=== PATIENT | female | born 1990 | race Caucasian/White ===

== ENCOUNTER 2018-03-28 14:35 | Emergency (ER) | payer MEDICAID, OTHER ==
[~2018-03-28] VITALS: Ht 149.9 cm; Wt 92.4 kg
[2018-03-28 14:40] VITALS: BP 164/83
[2018-03-28] MEDS ORDERED: PENI500T2 PO (15:16)
== END 2018-03-28 15:27 | disposition home or self-care (01) ==
LOC: ER 14:35
DX: K08.89 Other specified disorders of teeth and supporting structures (principal); Z88.1 Allergy status to other antibiotic agents; Z79.899 Other long term (current) drug therapy
CPT/HCPCS: 99283

== ENCOUNTER 2020-05-03 10:03 | Emergency (ER) | payer OTHER ==
[~2020-05-03] VITALS: Ht 149.9 cm; Wt 91.5 kg
[2020-05-03 10:47] LABS: CLARITY,URINE SLIGHTLY CLOUDY (Clear); COLOR,URINE YELLOW (Yellow); GLUCOSE, URINE NEGATIVE (Neg); KETONES,URINE NEGATIVE (Neg); LEUKOCYTE ESTERASE ,URINE NEGATIVE (Neg); NITRITES, URINE NEGATIVE (Neg); OCCULT BLOOD,URINE NEGATIVE (Neg); PROTEIN,URINE NEGATIVE (Neg)
[2020-05-03 10:48] LABS: URINE HCG NEGATIVE (NEG)
[2020-05-03 10:51] LABS: UA COLLECTION TYPE CLN CATCH MIDSTREAM
[2020-05-03 10:52] LABS: BACTERIA,URINE NONE SEEN /HPF (Neg); MUCUS STRANDS MODERATE /LPF (Neg); RBC,URINE NONE SEEN /HPF (0-2); SQUAMOUS EPITHELIAL CELL,UR MANY /LPF (FEW); WBC,URINE 0-4 /HPF (0-4)
[2020-05-03 11:06] LABS: ALANINE AMINOTRANSFERASE 13 U/L (12-78); ALBUMIN 3.8 G/DL (3.4-5.0); ALKALINE PHOSPHATASE 69 IU/L (46-116); ANION GAP 6 (8-16); ASPARTATE AMINO TRANSFERASE 15 U/L (10-37); BASOPHILS % (AUTO) 0.5 % (0-1); BILIRUBIN,TOTAL 0.5 MG/DL (0.1-1.0); BLOOD UREA NITROGEN 11 MG/DL (7-18); BUN/CREATININE RATIO 10.5 (6.6-38.0); CALCIUM 8.9 MG/DL (8.5-10.1); CHLORIDE 105 MMOL/L (99-107); CREATININE 1.05 MG/DL (0.40-0.90); EOSINOPHILS # (AUTO) 0.2 X10'3 (0-0.9); EOSINOPHILS % (AUTO) 2.1 % (0-6); GLUCOSE 97 MG/DL (70-104); HEMOGLOBIN 14.1 g/dl (12.0-16.0); LIPASE 64 U/L (73-393); LYMPHOCYTES # (AUTO) 1.8 X10'3 (1.1-4.8); LYMPHOCYTES % (AUTO) 22.6 % (21-51); MEAN CORPUSCULAR HEMOGLOBIN 29.5 PG (27.0-31.0); MEAN CORPUSCULAR HGB CONC 33.6 g/dL (33.0-36.5); MONOCYTES # (AUTO) 0.4 X10'3 (0-0.9); MONOCYTES % (AUTO) 4.8 % (2-12); NEUTROPHILS # (AUTO) 5.7 X10'3 (1.8-7.7); PLATELET COUNT 281 X10'3 (140-440); POTASSIUM 4.1 MMOL/L (3.5-5.1); RED BLOOD COUNT 4.78 X10'6 (4.20-5.60); RED CELL DISTRIBUTION WIDTH 12.8 % (11.5-14.5); SODIUM 141 MMOL/L (135-145); TOTAL CARBON DIOXIDE 30.2 MMOL/L (24-32); TOTAL PROTEIN 7.7 G/DL (6.4-8.2); WHITE BLOOD COUNT 8.1 X10'3 (4.5-11.0); eGFR 62 ML/MIN
[2020-05-03] MEDS ORDERED: HYDROcodone/acetaminophen 10/325mg tab PO ONE (11:45)
[2020-05-03 11:55] VITALS: BP 119/81
== END 2020-05-03 11:57 | disposition home or self-care (01) ==
LOC: ER 10:03
DX: R10.11 Right upper quadrant pain (principal); Z88.1 Allergy status to other antibiotic agents
CPT/HCPCS: 36415; 76700; 80053; 81001; 81025; 83690; 85025; 99284

== ENCOUNTER 2020-06-14 10:04 | Emergency (ER) | payer SELFPAY ==
[~2020-06-14] VITALS: Ht 152.4 cm; Wt 94.1 kg
[2020-06-14 10:43] LABS: BASOPHILS # (AUTO) 0.1 X10'3 (0-0.2); BASOPHILS % (AUTO) 0.9 % (0-1); EOSINOPHILS # (AUTO) 0.1 X10'3 (0-0.9); EOSINOPHILS % (AUTO) 1.3 % (0-6); HEMATOCRIT 42.3 % (35.0-45.0); HEMOGLOBIN 14.2 g/dl (12.0-16.0); LYMPHOCYTES # (AUTO) 2.5 X10'3 (1.1-4.8); LYMPHOCYTES % (AUTO) 28.1 % (21-51); MEAN CORPUSCULAR HEMOGLOBIN 29.6 PG (27.0-31.0); MEAN CORPUSCULAR HGB CONC 33.5 g/dL (33.0-36.5); MEAN CORPUSCULAR VOLUME 88.2 FL (78-98); MEAN PLATELET VOLUME 9.4 FL (7.4-10.4); MONOCYTES # (AUTO) 0.5 X10'3 (0-0.9); MONOCYTES % (AUTO) 5.5 % (2-12); NEUTROPHILS # (AUTO) 5.8 X10'3 (1.8-7.7); NEUTROPHILS % (AUTO) 64.2 % (42-75); PLATELET COUNT 265 X10'3 (140-440); RED BLOOD COUNT 4.79 X10'6 (4.20-5.60)
[2020-06-14 10:43] LABS: CLARITY,URINE CLEAR (Clear); COLOR,URINE YELLOW (Yellow); GLUCOSE, URINE NEGATIVE (Neg); KETONES,URINE NEGATIVE (Neg); LEUKOCYTE ESTERASE ,URINE NEGATIVE (Neg); NITRITES, URINE NEGATIVE (Neg); OCCULT BLOOD,URINE NEGATIVE (Neg); PH,URINE 6.5 (4.8-8.0); PROTEIN,URINE NEGATIVE (Neg); URINE HCG NEGATIVE (NEG)
[2020-06-14 10:52] LABS: UA COLLECTION TYPE CLN CATCH MIDSTREAM
[2020-06-14 10:54] LABS: ALANINE AMINOTRANSFERASE 28 U/L (12-78); ALBUMIN 3.9 G/DL (3.4-5.0); ALKALINE PHOSPHATASE 72 IU/L (46-116); ANION GAP 8 (8-16); ASPARTATE AMINO TRANSFERASE 14 U/L (10-37); BILIRUBIN,TOTAL 0.5 MG/DL (0.1-1.0); BLOOD UREA NITROGEN 13 MG/DL (7-18); BUN/CREATININE RATIO 14.1 (6.6-38.0); CALCIUM 8.7 MG/DL (8.5-10.1); CHLORIDE 104 MMOL/L (99-107); CREATININE 0.92 MG/DL (0.40-0.90); GLUCOSE 84 MG/DL (70-104); LIPASE 95 U/L (73-393); POTASSIUM 3.9 MMOL/L (3.5-5.1); SODIUM 139 MMOL/L (135-145); TOTAL PROTEIN 7.7 G/DL (6.4-8.2); eGFR 72 ML/MIN
[2020-06-14] MEDS ORDERED: ondansetron/PF 4mg/2ml inj IV ONE (11:05)
[2020-06-14] MEDS ORDERED: normal saline 1000ML IV soln IVB ONE (11:05)
[2020-06-14] MEDS ORDERED: morphine 4 MG/ML inj SYRINge IV ONE (11:45)
[2020-06-14 13:10] VITALS: BP 108/54
== END 2020-06-14 13:12 | disposition home or self-care (01) ==
LOC: ER 10:04
DX: R10.31 Right lower quadrant pain (principal); K59.00 Constipation, unspecified; K76.0 Fatty (change of) liver, not elsewhere classified; Z88.1 Allergy status to other antibiotic agents
CPT/HCPCS: 36415; 74176; 80053; 81003; 81025; 83690; 85025; 96361; 96374; 96375; 99284; J2270; J2405; J7030

== ENCOUNTER 2022-03-22 21:41 | Emergency (ER) | payer MEDICAID ==
[~2022-03-22] VITALS: Ht 149.9 cm; Wt 90.9 kg
[2022-03-22 21:45] VITALS: BP 166/79
[2022-03-22] MEDS ORDERED: ketorolac trometh inj. 60 MG/2 ML VIAL IM ONE (23:40)
[2022-03-22] MEDS ORDERED: HYDROcodone/acetaminophen 5mg/325mg tablet PO ONE (23:40)
== END 2022-03-22 23:51 | disposition home or self-care (01) ==
LOC: ER 21:42
DX: S00.81XA Abrasion of other part of head, initial encounter (principal); R42 Dizziness and giddiness; Z79.2 Long term (current) use of antibiotics; Y08.89XA Assault by other specified means, initial encounter; Y93.89 Activity, other specified; Y92.89 Other specified places as the place of occurrence of the external cause; Y99.8 Other external cause status
CPT/HCPCS: 72050; 96372; 99283; J1885

== ENCOUNTER 2025-01-08 03:16 | Emergency (ER) | payer MEDICAID ==
[~2025-01-08] VITALS: Ht 149.9 cm; Wt 111.6 kg
[2025-01-08] MEDS ORDERED: CEPH-585 PO (04:46)
[2025-01-08] MEDS: cephalexin 250mg capsule PO ONE (04:58)
[2025-01-08] MEDS: TETanus/Pertussis (Acell)/Diphther VAC/PF (Tdap-Adult) 0.5ml syringe IMVAC ONE (04:59)
[2025-01-08 05:02] VITALS: BP 155/73; PULSE 82; RESP 16; TEMP 97.9; O2SAT 98
== END 2025-01-08 05:09 | disposition home or self-care (01) ==
LOC: ER 03:17
DX: H60.12 Cellulitis of left external ear (principal); Z88.1 Allergy status to other antibiotic agents
CPT/HCPCS: 90471; 90715; 99283

== ENCOUNTER 2025-02-04 09:45 | Emergency (ER) | payer MEDICAID ==
[~2025-02-04] VITALS: Ht 149.9 cm; Wt 110.0 kg
[2025-02-04 09:55] VITALS: BP 161/89; PULSE 94; RESP 18; TEMP 97.8; O2SAT 95
[2025-02-04] MEDS ORDERED: CLOT15CR73 TOP (10:25)
[2025-02-04] MEDS ORDERED: DOXY-462 PO (10:25)
== END 2025-02-04 10:31 | disposition home or self-care (01) ==
LOC: ER 09:45
DX: L08.9 Local infection of the skin and subcutaneous tissue, unspecified (principal); Z88.0 Allergy status to penicillin
CPT/HCPCS: 99283

== ENCOUNTER 2025-04-27 00:50 | Emergency (ER) | payer MEDICAID ==
[~2025-04-27] VITALS: Ht 149.9 cm; Wt 112.9 kg
[2025-04-27 01:02] VITALS: BP 148/84; PULSE 95; RESP 16; O2SAT 95
--- NOTE | 2025-04-27 02:45 | Physician Documentation ---
History of Present Illness ~ Chief Complaint: Rash Stated Complaint: RASH Time Seen by MD: 02:45 Primary Medical Doctor: [facility] HPI 34-year-old female, overall healthy, presenting with a rash to her right armpit She tells me that over the past couple of days she has noticed a red raised rash to her armpit. She did see her primary care doctor and was prescribed a steroid cream. She tells me that she used it 1 time and it did not seem to help. She also used 1 dose of an antifungal cream from a family member and this also did not fix the rash. She comes in tonight requesting antibiotics. Does report a history of impetigo, and was treated with antibiotics in the past. No fevers, chills, or other associated symptoms Medication Reconciliation Allergies: Coded Allergies: amoxicillin (Verified Allergy, Unknown, VOMITTING, 04/27/25) Scheduled Cephalexin*Monohydrate* (Keflex*), 1 CAP PO BID Past Medical History Past Medical History: No Pertinent History Past Surgical History: no surgical history Alcohol Use: None Drug Use: none Lives In: Home Review of Systems Constitutional: Denies: fever Integumentary: Reports: rash Physical Exam Vital Signs: Temperature: 97.8, Source: Temporal, Heart Rate: 95, Respiratory Rate: 16, BP: 148/84, Pulse Oximetry: 95, Weight: 112.900 Oxygen Flow Rate: 0 Physical Exam General: This is a overall healthy-appearing young female, sitting calmly in bed Heart: Regular rate and rhythm, normal-appearing peripheral perfusion Lungs: normal work of breathing, normal oxygen saturation on room air Right axilla: The patient has a rash in the right axillary region, which is beefy, raised and red, nonblanching, minimally tender. It measures approximately 6 x 8 cm. There are some satellite lesions around the hair follicles. Neuro: Alert and oriented, Psychiatric: Calm and cooperative with exam Progress Results/Orders Results/Orders Completed Orders - SAIRA HUMPHREY MD Cephalexin Capsule (Keflex Capsule) (04/27/25 02:55) Medications Received in ER Medications (Trade) Dose Ordered Sig/Bartolome Route PRN Reason Start Time Stop Time Status Last Admin Dose Admin (Keflex capsule) 500 mg ONCE ONCE PO 04/27/25 02:55 04/27/25 02:56 DC 04/27/25 03:04 500 MG Vital Signs 7/12/25 7/12/25 01:02 03:05 Temp 97.8 97.8 Pulse 95 Resp 16 B/P (MAP) 148/84 Pulse Ox 95 O2 Flow Rate 0 Medical Decision Making Differential Dx:Considerations: Include: Abscess, Contact dermatitis, Hidradenitis suppurativa, Impetigo, Urticaria Additional Comment Differential includes fungal infection or cellulitis Assessment The patient presents with a rash in her armpit. Per my exam, this seems most consistent with a fungal infection. Cellulitis/folliculitis also possible although less likely. No evidence of abscess or more dangerous deep space infection. After shared decision-making conversation we agreed on the following plan: She will be treated with a course of Keflex, she will also use a topical antifungal cream for 1-2 weeks. She will follow up with the primary care clinic for re-evaluation and further treatment. Departure Time of Disposition: 02:54 Disposition: 01 HOME / SELF CARE / HOMELESS Impression: Primary Impression: Rash Condition: Stable Discharge Instructions: Cellulitis, Adult Referrals: NO PRIMARY CARE PROVIDER (PCP) Prescriptions Cephalexin*Monohydrate* (Keflex*) 500 Mg Capsule 1 CAP PO BID for 7 Days, #14 CAP Prov: SAIRA HUMPHREY MD 04/27/25 Education Educated: Patient Educated regarding: diagnosis, treatment, need for follow up Signature Scribe Signature: na Attestation: SAIRA Leon MD Apr 27, 2025 02:45
[2025-04-27] MEDS ORDERED: CEPH-585 PO (02:56)
[2025-04-27 03:05] VITALS: TEMP 97.8
== END 2025-04-27 03:06 | disposition home or self-care (01) ==
LOC: ER 00:50
DX: R21 Rash and other nonspecific skin eruption (principal)
CPT/HCPCS: 99283

== ENCOUNTER 2025-05-19 20:17 | Emergency (ER) | payer MEDICAID ==
[~2025-05-19] VITALS: Ht 152.4 cm; Wt 118.5 kg
[2025-05-19 20:46] VITALS: TEMP 97.4
--- NOTE | 2025-05-20 02:48 | Physician Documentation ---
History of Present Illness ~ Chief Complaint: Cold, cough & congestion Stated Complaint: COLD SYMPTOMS Time Seen by MD: 02:46 OK to notify your PCP?: Yes Primary Medical Doctor: [facility] Source: patient, RN/MD, RN notes reviewed, old records Mode of Arrival: POV Exam Limitations: no limitations HPI This patient is a 34 y/o female who presents to ED with chief complaint of cough, cold, and congestion. Patient complains she has been having worsening congestion and cough for the past three days. Patient reports tonight she also developed a very bad ear-ache on the right side, which has been making it difficult for her to sleep. Patient notes she has been around a roommate who has been sick with similar symptoms. No fevers or chills. Patient denies any other associated symptoms at this time. Patient denies any other alleviating or exacerbating factors. Medication Reconciliation Allergies: Coded Allergies: No Known Allergies (Unverified , 05/19/25) Scheduled Azithromycin (Zithromax), 1 TAB PO DAILY Naproxen (Naproxen), 1 TAB PO Q12H Past Medical History Past Medical History: No Pertinent History Past Surgical History: no surgical history Smoking Status: Current every day smoker Alcohol Use: None Drug Use: none Lives In: Home Review of Systems All Other Systems at this time: Reviewed and Negative Physical Exam Vital Signs: RN Vital Signs have been reviewed: Yes, Temperature: 97.4, Source: Temporal, Heart Rate: 85, Respiratory Rate: 18, BP: 162/93, Pulse Oximetry: 96, Weight: 118.500 Oxygen Flow Rate: 0 Physical Exam General: The patient is well developed, well nourished, nontoxic appearing and is in no acute distress. Skin: [place], warm and dry with no rashes. HEENT: Nasal congestion. Head was normocephalic and atraumatic. Eyes - pupils equal, round, reactive to light and accommodation. Extraocular movements were intact. Conjunctivae were nonicteric. Ears - Right TM is bulging, loss of landmarks, erythematous. Left TM normal. The mouth and oropharynx were clear with moist mucous membranes. There were no pharyngeal exudates or erythema. Neck: Supple and nontender. There was no jugular venous distention, lymphadenopathy, thyromegaly or masses. Chest: Wheezing on auscultation, no rales or rhonchi. No accessory muscle use. No dullness to percussion. Heart: Rate regular and rhythmic. S1, S2. No murmurs. Palpation of the chest wall was normal. No rubs or thrills. Abdomen: Soft, nontender and nondistended. Positive bowel sounds. No guarding or rebound. No hepatosplenomegaly or palpable masses. Extremities: No cyanosis, clubbing or edema. The patient moves all extremit ies. Pulses were equal and symmetric. Neurologic: Cranial nerves II-XII were intact. Sensation was intact to light touch throughout. Motor strength was 5/5 in all four extremities. Deep tendon reflexes were intact in both upper and lower extremities. Psychologic: The patient was oriented to person, place and time. The patient demonstrated appropriate judgement and insight. Progress Results/Orders Reviewed/noted all lab results: Yes Results/Orders Completed Orders - HERIBERTO FRENCH MD Diphenhydramine Capsule (Benadryl Capsul (05/20/25 03:10) Azithromycin Tablet (Zithromax Tablet) (05/20/25 03:10) Naproxen Tablet (Naprosyn Tablet) (05/20/25 03:10) Medications Received in ER Medications (Trade) Dose Ordered Sig/Bartolome Route PRN Reason Start Time Stop Time Status Last Admin Dose Admin (Zithromax tablet) 500 mg ONCE ONCE PO 05/20/25 03:10 05/20/25 03:11 DC 05/20/25 03:19 500 MG (Naprosyn tablet) 500 mg ONCE ONCE PO 05/20/25 03:10 05/20/25 03:11 DC 05/20/25 03:19 500 MG Vital Signs 05/19/25 05/19/25 05/20/25 20:46 23:11 03:25 Temp 97.4 Pulse 85 72 Resp 18 18 16 B/P (MAP) 162/93 166/96 (119) Pulse Ox 96 98 O2 Flow Rate 0 0 Re-Evaluation Re-Evaluation : Re-Evaluation: Improved Progress Patient was seen and examined. Patient is given reassurance. Patient had a significant roaring red ranging right ear infection. Patient was given Zithromax naproxen also decongestants and was discharged home. Patient received Benadryl. Prescription was written for Zofran and naproxen. Patient was encouraged to follow up with her physician as needed for re-evaluation otherwise return to the ER if any worsening symptoms. Continuous pulse oximetry monitor interpretation shows normal oxygenation at 97% room air, normal, my interpretation. Medical Decision Making Additional info obtained from: old records Differential Dx:Considerations: Include: Allergic rhinitis, Influenza, Otitis media, Pharyngitis-Viral, Pneumonia, Sinusitis, URI, Other Departure Time of Disposition: 03:08 Disposition: 01 HOME / SELF CARE / HOMELESS Impression: Primary Impression: Otitis media Qualified Codes: H65.491 - Other chronic nonsuppurative otitis media, right ear Additional Impression: URI (upper respiratory infection) Qualified Codes: J06.9 - Acute upper respiratory infection, unspecified Condition: Stable Discharge Instructions: Otitis Media, Adult, Upper Respiratory Infection, Adult Additional Instructions: Take antibiotics as prescribed. In addition to Tylenol and Ibuprofen, you may also take a decongestion such as Benadryl. [id number] Claritin may also help her symptoms. Referrals: NO PRIMARY CARE PROVIDER (PCP) Prescriptions Azithromycin (Zithromax) 250 Mg Tablet 1 TAB PO DAILY, #4 TAB Prov: HERIBERTO FRENCH MD 05/20/25 Naproxen (Naproxen) 500 Mg Tablet 1 TAB PO Q12H, #20 TAB Prov: HERIBERTO FRENCH MD 05/20/25 Education Educated: Patient Educated regarding: diagnosis, treatment, need for follow up Signature Scribe Signature: Scribed for Heriberto French MD by Naheed Clements. 05/20/25 03:08 Attestation: The note accurately reflects work and decisions made by me.Heriberto French MD 05/20/25 02:48 HERIBERTO FRENCH MD May 20, 2025 02:48
[2025-05-20] MEDS ORDERED: NAPR-56 PO (03:19)
[2025-05-20] MEDS ORDERED: AZIT-164 PO (03:19)
[2025-05-20 03:25] VITALS: BP 166/96; PULSE 72; RESP 16; O2SAT 98
== END 2025-05-20 03:29 | disposition home or self-care (01) ==
LOC: ER 20:18
DX: J06.9 Acute upper respiratory infection, unspecified (principal); H66.91 Otitis media, unspecified, right ear; F17.200 Nicotine dependence, unspecified, uncomplicated
CPT/HCPCS: 99283

== ENCOUNTER 2025-05-22 22:26 | Emergency (ER) | payer MEDICAID ==
[~2025-05-22] VITALS: Ht 149.9 cm; Wt 112.0 kg
[~2025-05-22 22:26] MED LIST: AZIT-164 PO; NAPR-56 PO
[2025-05-22 22:31] VITALS: BP 183/87; PULSE 85; RESP 18; TEMP 97.4; O2SAT 98
[2025-05-22] MEDS ORDERED: AMOX-117 PO (23:18)
[2025-05-22] MEDS ORDERED: FLUT16SP2 BOTHNARES (23:18)
[2025-05-22] MEDS ORDERED: CIPR10DR RIGHT EAR (23:18)
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
== END 2025-05-22 23:26 | disposition home or self-care (01) ==
LOC: ER 22:26
DX: J06.9 Acute upper respiratory infection, unspecified (principal); H92.01 Otalgia, right ear
CPT/HCPCS: 99283

== ENCOUNTER 2025-06-23 11:22 | Emergency (ER) | payer MEDICAID ==
[~2025-06-23] VITALS: Ht 149.9 cm; Wt 108.3 kg
[~2025-06-23 11:22] MED LIST changes: -AZIT-164 PO; +FLUT16SP2 BOTHNARES; -NAPR-56 PO
[2025-06-23 11:40] VITALS: BP 179/95; PULSE 97; RESP 18; O2SAT 99
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
[2025-06-23 13:08] VITALS: TEMP 97.6
[2025-06-24] MEDS ORDERED: TRIA15CR61 TOP (21:22)
== END 2025-06-23 13:12 | disposition home or self-care (01) ==
LOC: ER 11:23
DX: R21 Rash and other nonspecific skin eruption (principal); Z79.899 Other long term (current) drug therapy; Y08.89XA Assault by other specified means, initial encounter; Y93.89 Activity, other specified; Y92.89 Other specified places as the place of occurrence of the external cause; Y99.8 Other external cause status
CPT/HCPCS: 99282

== ENCOUNTER 2025-06-24 19:00 | Emergency (ER) | payer MEDICAID ==
[~2025-06-24] VITALS: Ht 149.9 cm; Wt 108.3 kg
[2025-06-24] MEDS ORDERED: TRIA15CR61 TOP (21:22)
--- NOTE | 2025-06-24 21:23 | Physician Documentation ---
History of Present Illness ~ Chief Complaint: Rash Stated Complaint: FACE RASH Time Seen by MD: 20:32 Primary Medical Doctor: [facility] Patient is seen today with complaints of a rash on her face. She states she was prescribed some mupirocin ointment for presumed bacterial infection superficial skin infection but she states that ointment possibly made her skin itch worse. She has no other concern or complaint at this time. Medication Reconciliation Allergies: Coded Allergies: No Known Allergies (Unverified , 05/22/25) Scheduled Fluticasone Propionate (Flonase), 2 SPRAYS BOTHNARES DAILY Discontinued Medications Naproxen (Naproxen), 1 TAB PO Q12H Discontinued Reason: Auto Discontinued Past Medical History Past Medical History: No Pertinent History Past Surgical History: no surgical history Alcohol Use: None Drug Use: none Lives In: Home Review of Systems Constitutional: Denies: chills, fever, weakness Eyes: Denies: pain, blurred vision ENT: Denies: ear pain, nose pain, throat pain, mouth pain Respiratory: Denies: cough, shortness of breath Cardiovascular: Denies: chest pain, palpitations Gastrointestinal: Denies: abdominal pain, nausea, vomiting Genitourinary: Denies: burning, dysuria Female Genitalia: Denies: vaginal discharge, pelvic pain Neurological: Denies: headache, dizziness Musculoskeletal: Denies: pain, swelling Integumentary: Denies: rash, lesions Allergic/Immunologic: Denies: hives, itching Hematologic/Lymphatic: Denies: no symptoms reported Psychiatric: Denies: depression, anxiety Physical Exam Vital Signs: Temperature: 97.5, Heart Rate: 85, Respiratory Rate: 16, BP: 186/69, Pulse Oximetry: 98, Weight: 108.300 Oxygen Flow Rate: 0 Physical Exam General: Awake and Alert, no acute distress. HEENT: Conjunctiva pink, Sclera clear, Mucus Membranes moist. Neck: Supple without masses and tenderness. Resp: Unlabored. Lungs clear to auscultation bilaterally. Heart: Regular Rate and rhythm, normal S1 and S2 without murmur, rub or gallop. Abdomen: Soft and non tender no organomegaly Extremities: No cyanosis,clubbing or edema. Skin: Patient on exam has very mild eczematous rash on her chin and right upper eyelid. I do not appreciate any sign of impetigo or bacterial skin infection. Progress Results/Orders Results/Orders Vital Signs 06/24/25 19:05 Temp 97.5 Pulse 85 Resp 16 B/P (MAP) 186/69 Pulse Ox 98 O2 Flow Rate 0 Medical Decision Making Findings Patient is seen today with complaints of a rash on her face. She states she was prescribed some mupirocin ointment for presumed bacterial infection superficial skin infection but she states that ointment possibly made her skin itch worse. She has no other concern or complaint at this time. Patient was given prescription for triamcinolone topical cream to be applied twice a day to the affected areas for seven days. Patient will follow up with primary care for further eval and treatment and possible referral to Dermatology if needed. Return to ED with any worsening, concerning or changing symptoms. Departure Disposition: HOME / SELF CARE / HOMELESS Impression: Primary Impression: Skin irritation Additional Impression: Eczema Qualified Codes: L30.9 - Dermatitis, unspecified Condition: Stable Discharge Instructions: Eczema Additional Instructions: Patient was given prescription for triamcinolone topical cream to be applied twice a day to the affected areas for seven days. Patient will follow up with primary care for further eval and treatment and possible referral to Dermatology if needed. Return to ED with any worsening, concerning or changing symptoms. Referrals: NO PRIMARY CARE PROVIDER (PCP) Prescriptions Triamcinolone Acetonide 0.5% Crm* (Kenalog 0.5% Crm*) 15 Gm Tube 1 APPLIC TOP Q12H for 7 Days, #15 GM apply to affected area(s) Prov: LOLIS TREVINO PAC 06/24/25 Signature Scribe Signature: No scribe Attestation: No scribe LOLIS TREVINO PAC Jun 24, 2025 21:23
[2025-06-24 21:47] VITALS: BP 180/70; PULSE 85; RESP 16; TEMP 98.6; O2SAT 99
== END 2025-06-24 21:49 | disposition home or self-care (01) ==
LOC: ER 19:01
DX: L98.8 Other specified disorders of the skin and subcutaneous tissue (principal); L30.9 Dermatitis, unspecified; Z79.899 Other long term (current) drug therapy
CPT/HCPCS: 99283

== ENCOUNTER 2025-09-11 07:55 | Emergency (ER) | payer MEDICAID ==
[~2025-09-11] VITALS: Ht 152.4 cm; Wt 109.0 kg
[2025-09-11 08:01] VITALS: TEMP 98.4
--- NOTE | 2025-09-11 08:43 | Physician Documentation ---
History of Present Illness ~ Chief Complaint: Bite-insect Stated Complaint: INSECT BITE Time Seen by MD: 08:07 Primary Medical Doctor: Carmela Simmons Mode of Arrival: [facility] 34-year-old female patient who is not diabetic ambulatory came to the emergency room because of a bite to posterior aspect of the left side Tuesday night and now having itchiness and redness like a bull's eyes lesions. No problems with breathing swallowing and speaking. Denies shortness of breath. No other symptoms. Tetanus within 5 years?: Yes Medication Reconciliation Allergies: Coded Allergies: No Known Allergies (Unverified , 05/22/25) Scheduled Doxycycline Monohydrate (Doxycycline), 1 TAB PO Q12H Fluticasone Propionate (Flonase), 2 SPRAYS BOTHNARES DAILY Prednisone (Prednisone), 1 TAB PO DAILY Prednisone (Prednisone), 0 PO DAILY Scheduled PRN Diphenhydramine Hcl (Benadryl), 25 MG PO Q6H PRN for itching Past Medical History Past Medical History: No Pertinent History Past Surgical History: no surgical history Alcohol Use: None Drug Use: none Lives In: Home Review of Systems ROS As stated above in the HPI, otherwise all systems are reviewed and negative. Physical Exam Vital Signs: Temperature: 98.4, Source: Oral, Heart Rate: 82, Respiratory Rate: 16, BP: 169/84, Pulse Oximetry: 98, Weight: 109.000 Oxygen Flow Rate: 0 Physical Exam Reviewed vital signs and they are well within normal range. Const: Not in acute cardiopulmonary distress Head: Atraumatic Eyes: Normal Conjunctiva ENT: Normal External Ears, Nose and Mouth. Moist mucous membranes Airway is wide open and patent Neck: Full range of motion. No meningismus Resp: Clear to auscultation bilaterally. Normal work of breathing Cardio: Regular rate and rhythm, no murmurs. Skin well perfused Abd: Soft, non-tender, non-distended. Normal bowel sounds. No rebound or guarding Skin: No petechiae or rashes. Warm and dry Posterior aspect of the left leg lower midportion there is a bull-eyes lesion with erythema and at the center was a little bit darker area about 2 cm and the whole lesion is measuring about 10 cm in diameter. No blister no weeping. Back: No midline or flank tenderness Ext: No cyanosis, or edema Neuro: Awake and alert Psych: Normal Mood and Affect Progress Results/Orders Results/Orders Vital Signs 09/11/25 09/11/25 08:01 08:54 Temp 98.4 Pulse 82 75 Resp 16 20 B/P (MAP) 169/84 152/85 Pulse Ox 98 99 O2 Flow Rate 0 Medical Decision Making Additional information obtaine: old records Findings During the physical examination, the findings suggestive of acute life- threatening condition such as JVD, tracheal deviation, acidotic breathing, noisy stridorous breath sounds, pulses paradoxus, muffled heart sounds, unequal breath sounds, abdominal rigidity and rebound tenderness, focal neurological deficits, cool clammy skin, severe hypotension, severe tachycardia or bradycardia are absent. This is probably secondary infection or allergic reaction to insect bite. It will be treated with doxycycline p.o. and also four days of steroid. Patient does not have identifiable emergent medical condition that warrants in patient medical care at this time. The patient is deemed safe for discharge with outpatient follow up. DISCLAIMER Inadvertent spelling and grammatical errors,inadvertent supervisor final errors,syntax errors, grammatical errors, and spelling errors are likely due to EMR/dictation software use and do not reflect on the overall quality of patient care. Note that the electronic time recorded on this note does not necessarily reflect the actual time of the patient encounter. Differential Dx:Considerations: Include: Allergic reaction, Cellulitis, Contusion, Hematoma, Urticaria Departure Disposition: 01 HOME / SELF CARE / HOMELESS Impression: Primary Impression: Insect bites Additional Impressions: Cellulitis Allergic reaction Condition: Stable Discharge Instructions: Insect Bite, Adult, [id number], Cellulitis, Adult Additional Instructions: Thank you for coming to our Emergency Department today. Please ask your nurse or provider if you have questions about your care today and do not leave until all your questions have been answered. Please use any medications given as directed and follow-up with your doctor (or the doctor you were referred to) in the next 1-3 days. Your primary care doctor can help to coordinate outpatient specialty care and provide authorization for specialty referral as needed. If you do not have a primary care doctor you may follow up at a [facility]. You may also use motrin and tylenol as needed for fever and/or pain unless instructed otherwise by your provider or nurse. Indications for more urgent follow-up have been discussed, but you may return to the Emergency Department at ANY time for any worrisome or worsening symptoms. County Facilities: [facility] Facilities: [facility]: [facility] [place] Address:[address] [place] [address] [facility]: [place] Address:[address] [place] [address] [facility]: Telemedicine Address:[address] [place] [address] [facility] Address:[address] [place] [address] Registration Billing Pharmacy Referrals [facility] Address:[address] [place] [address] Referrals: NO PRIMARY CARE PROVIDER (PCP) Prescriptions Diphenhydramine Hcl (Benadryl) 25 Mg Capsule 25 MG PO Q6H PRN for itching, #30 CAP Prov: ASIM WINKLER MD 09/11/25 Prednisone (Prednisone) 10 Mg Tablet 0 PO DAILY, #16 TABLET Take 4 tabs/day x2 days then 2 daily x2 days 1 daily x2 days 1/2 daily x2 days then stop. Prov: ASIM WINKLER MD 09/11/25 Prednisone (Prednisone) 10 Mg Tablet 1 TAB PO DAILY for 5 Days, #21 TAB Prov: ASIM WINKLER MD 09/11/25 Doxycycline Monohydrate (Doxycycline) 150 Mg Tablet 1 TAB PO Q12H for 10 Days, #20 TAB Prov: ASIM WINKLER MD 09/11/25 Signature Scribe Signature: x Attestation: x ASIM WINKLER MD Sep 11, 2025 08:43
[2025-09-11] MEDS ORDERED: DIPH25CA83 PO (08:45)
[2025-09-11] MEDS ORDERED: DOXY150T3 PO (08:45)
[2025-09-11] MEDS ORDERED: PRED10TA23 PO (08:45)
[2025-09-11 08:54] VITALS: BP 152/85; PULSE 75; RESP 20; O2SAT 99
== END 2025-09-11 08:56 | disposition home or self-care (01) ==
LOC: ER 07:55
DX: S81.852A Open bite, left lower leg, initial encounter (principal); W57.XXXA Bitten or stung by nonvenomous insect and other nonvenomous arthropods, initial encounter; Y93.89 Activity, other specified; Y92.89 Other specified places as the place of occurrence of the external cause; Y99.8 Other external cause status
CPT/HCPCS: 99283